=== PATIENT | male | born 1955 | race Caucasian/White ===

== ENCOUNTER 2022-08-18 11:09 | Day surgery (SDC) | payer MEDICARE, BC ==
[~2022-08-18] VITALS: Ht 180.3 cm; Wt 135.0 kg
[2022-08-18] VITALS (8 sets, daily range): BP systolic 120–171; BP diastolic 63–102
[2022-08-18] MEDS ORDERED: diphenhydrAMINE 25mg capsule PO PRN (11:40)
[2022-08-18] MEDS ORDERED: normal saline 1,000 ML IV SCH (11:40)
[2022-08-18 12:07] LABS: BASOPHILS # (AUTO) 0.1 X10'3 (0-0.2); BASOPHILS % (AUTO) 1.4 % (0-1); EOSINOPHILS # (AUTO) 0.3 X10'3 (0-0.9); EOSINOPHILS % (AUTO) 3.6 % (0-6); HEMATOCRIT 46.3 % (42.0-52.0); HEMOGLOBIN 15.6 g/dl (14.0-17.9); LYMPHOCYTES # (AUTO) 2.1 X10'3 (1.1-4.8); LYMPHOCYTES % (AUTO) 27.3 % (21-51); MEAN CORPUSCULAR HEMOGLOBIN 29.2 PG (27.0-31.0); MEAN CORPUSCULAR HGB CONC 33.8 g/dL (33.0-36.5); MEAN CORPUSCULAR VOLUME 86.3 FL (78-98); MEAN PLATELET VOLUME 8.5 FL (7.4-10.4); MONOCYTES # (AUTO) 0.9 X10'3 (0-0.9); MONOCYTES % (AUTO) 11.2 % (2-12); NEUTROPHILS # (AUTO) 4.4 X10'3 (1.8-7.7); NEUTROPHILS % (AUTO) 56.5 % (42-75); PLATELET COUNT 272 X10'3 (140-440); RED BLOOD COUNT 5.36 X10'6 (4.70-6.10); RED CELL DISTRIBUTION WIDTH 14.8 % (11.5-14.5); WHITE BLOOD COUNT 7.9 X10'3 (4.5-11.0)
[2022-08-18 12:19] LABS: ALBUMIN 4.3 G/DL (3.4-5.0); ANION GAP 9 (8-16); BLOOD UREA NITROGEN 41 MG/DL (7-18); BUN/CREATININE RATIO 28.1 (10.0-20.0); CHLORIDE 101 MMOL/L (99-107); CREATININE 1.46 MG/DL (0.60-1.10); GLUCOSE 104 MG/DL (70-104); MAGNESIUM 2.1 MG/DL (1.5-2.4); SODIUM 139 MMOL/L (135-145); TOTAL CARBON DIOXIDE 28.7 MMOL/L (24-32); eGFR 48 ML/MIN
[2022-08-18] MEDS ORDERED: CALC-212 PO (12:19)
[2022-08-18] MEDS ORDERED: POTA-197 PO (12:19)
[2022-08-18] MEDS ORDERED: CARV6.2530 PO (12:19)
[2022-08-18] MEDS ORDERED: CLOP-32 PO (12:19)
[2022-08-18] MEDS ORDERED: SPIR25TA5 PO (12:19)
[2022-08-18] MEDS ORDERED: FURO40TA4 PO (12:19)
[2022-08-18] MEDS ORDERED: MAGN400T39 PO (12:19)
[2022-08-18] MEDS ORDERED: RIVA20TA PO (12:19)
[2022-08-18] MEDS ORDERED: METF-1203 OGT (12:19)
[2022-08-18] MEDS ORDERED: ATOR-2 PO (12:19)
[2022-08-18] MEDS ORDERED: EMPA10TA PO (12:19)
[2022-08-18] MEDS ORDERED: OMEG1CAP45 PO (12:19)
[2022-08-18] MEDS ORDERED: INSU100V5 IJ (12:19)
[2022-08-18] MEDS ORDERED: FENO145T38 PO (12:19)
[2022-08-18] MEDS ORDERED: SEMA0.25 SQ (12:19)
[2022-08-18] MEDS ORDERED: ASCO500T19 PO (12:19)
[2022-08-18] MEDS ORDERED: GABA300C PO ×2 (12:19)
[2022-08-18] MEDS ORDERED: MULT-1249 PO (12:19)
[2022-08-18] MEDS ORDERED: fentaNYL/PF 50MCG/1 ML 2ML syringe ONE ×2 (12:20→14:49)
[2022-08-18] MEDS ORDERED: midazolam 1 mg/ML 2ml injection ONE ×3 (12:20→13:18)
[2022-08-18 12:21] LABS: POTASSIUM 4.6 MMOL/L (3.5-5.1)
[2022-08-18] MEDS ORDERED: iohexol 350MG/ML 100ml bottle IV ONE ×3 (12:21→14:13)
[2022-08-18] MEDS ORDERED: heparin 1,000unit/ml 10ml vial 10 ML ONE ×2 (12:21→14:15)
[2022-08-18] MEDS ORDERED: LIDOcaine 1% 30ml preserv. free vial ONE (12:21)
[2022-08-18] MEDS ORDERED: clopidogrel 300mg tablet ONE (13:47)
[2022-08-18] MEDS ORDERED: ondansetron/PF 4mg/2ml inj IV PRN (15:35)
[2022-08-18] MEDS ORDERED: proCHLORperazine 10 MG/2 ml inj IV PRN (15:40)
[2022-08-18] MEDS ORDERED: HYDROcodone/acetaminophen 5mg/325mg tablet PO PRN (15:40)
[2022-08-18] MEDS ORDERED: HYDROcodone/acetaminophen 10/325mg tab PO PRN (15:40)
== END 2022-08-18 19:40 | disposition home or self-care (01) ==
LOC: SSTAY O 11:09
PROVIDERS: ATTEND Internal Medicine Cardiovascular Disease
DX: I25.119 Atherosclerotic heart disease of native coronary artery with unspecified angina pectoris (principal); E78.5 Hyperlipidemia, unspecified; G47.33 Obstructive sleep apnea (adult) (pediatric); D68.51 Activated protein C resistance; E66.01 Morbid (severe) obesity due to excess calories; Z68.41 Body mass index [BMI] 40.0-44.9, adult; E11.9 Type 2 diabetes mellitus without complications; Z79.4 Long term (current) use of insulin; Z79.899 Other long term (current) drug therapy; Z90.49 Acquired absence of other specified parts of digestive tract; Z98.890 Other specified postprocedural states; Z88.2 Allergy status to sulfonamides; Z88.8 Allergy status to other drugs, medicaments and biological substances; Z87.891 Personal history of nicotine dependence; Z82.49 Family history of ischemic heart disease and other diseases of the circulatory system
CPT/HCPCS: 36415; 80048; 82948; 83735; 85025; 85610; 93005; 93458; 99152; 99153; C1725; C1751; C1760; C1769; C1874; C1892; C1894; C9600; J1644; J2250; J3010; J3490; J7030; Q0163; Q9967; 92928; A6258; C1761; C9601

== ENCOUNTER 2022-08-19 18:53 | Inpatient (IN) | payer OTHER, MEDICARE, BC ==
[~2022-08-19] VITALS: Ht 177.8 cm; Wt 136.0 kg
[~2022-08-19 18:53] MED LIST: ASCO500T19 PO; ATOR-2 PO; CALC-212 PO; CARV6.2530 PO; CLOP-32 PO; EMPA10TA PO; FENO145T38 PO; FURO40TA4 PO; GABA300C PO; INSU100V5 IJ; MAGN400T39 PO; METF-1203 OGT; MULT-1249 PO; OMEG1CAP45 PO; POTA-197 PO; RIVA20TA PO; SEMA0.25 SQ; SPIR25TA5 PO
[2022-08-19 19:17] LABS: BASOPHILS # (AUTO) 0.1 X10'3 (0-0.2); BASOPHILS % (AUTO) 0.9 % (0-1); EOSINOPHILS # (AUTO) 0.2 X10'3 (0-0.9); EOSINOPHILS % (AUTO) 2.3 % (0-6); HEMOGLOBIN 15.2 g/dl (14.0-17.9); LYMPHOCYTES # (AUTO) 1.8 X10'3 (1.1-4.8); LYMPHOCYTES % (AUTO) 18.8 % (21-51); MEAN CORPUSCULAR HEMOGLOBIN 29.3 PG (27.0-31.0); MEAN CORPUSCULAR HGB CONC 33.7 g/dL (33.0-36.5); MEAN CORPUSCULAR VOLUME 86.7 FL (78-98); MEAN PLATELET VOLUME 8.6 FL (7.4-10.4); MONOCYTES # (AUTO) 0.9 X10'3 (0-0.9); MONOCYTES % (AUTO) 9.5 % (2-12); NEUTROPHILS # (AUTO) 6.5 X10'3 (1.8-7.7); NEUTROPHILS % (AUTO) 68.5 % (42-75); PLATELET COUNT 246 X10'3 (140-440); RED BLOOD COUNT 5.19 X10'6 (4.70-6.10); WHITE BLOOD COUNT 9.5 X10'3 (4.5-11.0)
[2022-08-19 19:49] LABS: ALANINE AMINOTRANSFERASE 67 U/L (12-78); ALBUMIN 3.9 G/DL (3.4-5.0); ALBUMIN/GLOBULIN RATIO 1.1 (1.1-1.5); ALKALINE PHOSPHATASE 80 IU/L (46-116); ANION GAP 10 (8-16); ASPARTATE AMINO TRANSFERASE 33 U/L (10-37); BILIRUBIN,TOTAL 0.6 MG/DL (0.1-1.0); BLOOD UREA NITROGEN 32 MG/DL (7-18); BUN/CREATININE RATIO 22.5 (10.0-20.0); CHLORIDE 98 MMOL/L (99-107); CREATININE 1.42 MG/DL (0.60-1.10); GLUCOSE 346 MG/DL (70-104); POTASSIUM 4.6 MMOL/L (3.5-5.1); SODIUM 134 MMOL/L (135-145); TOTAL CARBON DIOXIDE 25.8 MMOL/L (24-32); TOTAL PROTEIN 7.4 G/DL (6.4-8.2); eGFR 49 ML/MIN
[2022-08-19 19:58] LABS: MAGNESIUM 2.2 MG/DL (1.5-2.4)
[2022-08-19] MEDS ORDERED: nitroGLYCERIN 0.4mg SUBLingual tab SL PRN (20:15)
[2022-08-19] MEDS ORDERED: nitroGLYCERIN 0.4mg/hour patch TD ONE (20:20)
[2022-08-19] MEDS ORDERED: aspirin 81mg tab.chew PO ONE (20:20)
[2022-08-19] MEDS ORDERED: heparin 10,000 units/1 ML INJ IV ONE (20:20)
[2022-08-19 20:34] LABS: APTT 27 SECONDS (22-32)
[2022-08-19] MEDS: heparin 25,000 UNIT/250ml bag 250 ML IV PRN (20:44)
[2022-08-19] MEDS ORDERED: ondansetron/PF 4mg/2ml inj IV PRN (21:25)
[2022-08-19] MEDS: normal saline 1000ml 1,000 ML IV SCH (21:25)
[2022-08-19] MEDS ORDERED: ondansetron 4mg rapidly disintigrating tab PO PRN (21:25)
[2022-08-19] MEDS ORDERED: HYDROcodone/acetaminophen 10/325mg tab PO PRN (21:25)
[2022-08-19] MEDS ORDERED: acetaminophen 650mg rectal suppository RC PRN (21:25)
[2022-08-19] MEDS ORDERED: acetaminophen 325mg tablet PO PRN ×2 (21:25)
[2022-08-19] MEDS ORDERED: bisacodyl 10mg suppository rectal RC PRN (21:25)
[2022-08-19] MEDS ORDERED: magnesium hydroxide 30ml (MOM) UD suspension PO PRN (21:25)
[2022-08-19] MEDS ORDERED: HYDROcodone/acetaminophen 5mg/325mg tablet PO PRN (21:25)
[2022-08-19] MEDS ORDERED: morphine 2 MG/ML inj. syringe IV PRN ×2 (21:25)
[2022-08-19] MEDS ORDERED: diphenhydrAMINE 50 mg/ml inj IV PRN (21:25)
[2022-08-19] MEDS ORDERED: diphenhydrAMINE 25mg capsule PO PRN (21:25)
[2022-08-19] MEDS ORDERED: mag hydrox/Alum hydrox/simeth 30ml oral suspension PO PRN (21:25)
[2022-08-19] MEDS ORDERED: glucagon, human recombinant 1mg kit SUBCUT PRN (21:30)
[2022-08-19] MEDS ORDERED: dextrose 50%-water 50ml dispensing syringe IV PRN ×2 (21:30)
[2022-08-19] MEDS ORDERED: MESSAGE TO PHARMACY PO ONE (21:30)
[2022-08-19] MEDS ORDERED: DEXTROSE 15 GM of carb/4 tabs (each vial/BOTTLE has 4 tablets) PO PRN ×2 (21:30)
[2022-08-19] MEDS: insulin glargine (Lantus) pen - multi-dose SQ SCH (22:13)
[2022-08-19 22:27] LABS: CLARITY,URINE CLEAR (Clear); COLOR,URINE STRAW (Yellow); GLUCOSE, URINE >=1000 mg/dl (Neg); KETONES,URINE NEGATIVE (Neg); LEUKOCYTE ESTERASE ,URINE NEGATIVE (Neg); NITRITES, URINE NEGATIVE (Neg); OCCULT BLOOD,URINE NEGATIVE (Neg); PROTEIN,URINE NEGATIVE (Neg); UROBILINOGEN,URINE 0.2 E.U/dL (0.2-1.0)
[2022-08-19 22:28] LABS: HEMOGLOBIN A1C 9.7 % (4.5-6.2)
[2022-08-19 22:28] LABS: UA COLLECTION TYPE CLN CATCH MIDSTREAM
[2022-08-19 22:45] LABS: CREATINE KINASE 240 U/L (39-308); LIPASE 627 U/L (73-393); PHOSPHORUS 3.7 MG/DL (2.3-4.5)
[2022-08-19 22:47] LABS: BACTERIA,URINE NONE SEEN /HPF (Neg); RBC,URINE NONE SEEN /HPF (0-2); SQUAMOUS EPITHELIAL CELL,UR FEW /LPF (FEW); WBC,URINE NONE SEEN /HPF (0-4)
[2022-08-20] VITALS (7 sets, daily range): BP systolic 96–131; BP diastolic 50–64
[2022-08-20 03:37] LABS: BASOPHILS # (AUTO) 0.1 X10'3 (0-0.2); BASOPHILS % (AUTO) 1.1 % (0-1); EOSINOPHILS # (AUTO) 0.2 X10'3 (0-0.9); EOSINOPHILS % (AUTO) 2.5 % (0-6); HEMATOCRIT 43.6 % (42.0-52.0); HEMOGLOBIN 14.7 g/dl (14.0-17.9); LYMPHOCYTES # (AUTO) 2.3 X10'3 (1.1-4.8); LYMPHOCYTES % (AUTO) 28.4 % (21-51); MEAN CORPUSCULAR HEMOGLOBIN 29.4 PG (27.0-31.0); MEAN CORPUSCULAR HGB CONC 33.8 g/dL (33.0-36.5); MEAN CORPUSCULAR VOLUME 87.2 FL (78-98); MEAN PLATELET VOLUME 8.9 FL (7.4-10.4); MONOCYTES # (AUTO) 0.8 X10'3 (0-0.9); MONOCYTES % (AUTO) 10.1 % (2-12); NEUTROPHILS # (AUTO) 4.8 X10'3 (1.8-7.7); NEUTROPHILS % (AUTO) 57.9 % (42-75); PLATELET COUNT 264 X10'3 (140-440); RED CELL DISTRIBUTION WIDTH 15.2 % (11.5-14.5); WHITE BLOOD COUNT 8.3 X10'3 (4.5-11.0)
[2022-08-20 03:49] LABS: ALANINE AMINOTRANSFERASE 57 U/L (12-78); ALBUMIN 3.8 G/DL (3.4-5.0); ALBUMIN/GLOBULIN RATIO 1.1 (1.1-1.5); ALKALINE PHOSPHATASE 64 IU/L (46-116); ANION GAP 9 (8-16); BILIRUBIN,TOTAL 0.5 MG/DL (0.1-1.0); BLOOD UREA NITROGEN 31 MG/DL (7-18); BUN/CREATININE RATIO 22.1 (10.0-20.0); CHLORIDE 100 MMOL/L (99-107); CHOL/HDL RATIO 4.4 (0.00-4.99); CHOLESTEROL 155 MG/DL (0-200); HDL CHOLESTEROL 35 MG/DL (35-60); LDL CHOLESTEROL 69 MG/DL (50-100); SODIUM 135 MMOL/L (135-145); TOTAL CARBON DIOXIDE 26.3 MMOL/L (24-32); TOTAL PROTEIN 7.3 G/DL (6.4-8.2); TRIGLYCERIDES 604 MG/DL (20-135); eGFR 50 ML/MIN
[2022-08-20 04:06] LABS: GLUCOSE 250 MG/DL (70-104); POTASSIUM 4.4 MMOL/L (3.5-5.1)
[2022-08-20 04:25] LABS: ASPARTATE AMINO TRANSFERASE 25 U/L (10-37)
[2022-08-20] MEDS: normal saline 1000ml 1,000 ML IV SCH ×3 (04:36→22:06)
--- NOTE | 2022-08-20 06:48 | NUR ---
Patient in room ORTHO 4016. I have received report from SYLWIA AMOS and had the opportunity to ask questions and assume patient care.
[2022-08-20] MEDS: calcium carbonate 500mg chew tablet PO PRN (08:59)
[2022-08-20] MEDS: atorvastatin 20mg tablet PO SCH (09:00)
[2022-08-20] MEDS: pantoprazole 40mg Tablet.DR PO SCH (09:00)
[2022-08-20] MEDS: gabapentin 300mg capsule PO SCH ×2 (09:00→19:45)
[2022-08-20] MEDS: fenofibrate 145mg tablet PO SCH (09:01)
[2022-08-20] MEDS: docusate sod 100mg capsule PO SCH ×2 (09:02→19:44)
[2022-08-20] MEDS: spironolactone 25 MG tablet PO SCH (09:04)
[2022-08-20] MEDS: carvedilol 6.25mg tablet PO SCH ×2 (09:05→19:44)
[2022-08-20] MEDS: insulin Lispro (HumaLOG) vial - multi-dose SQ SCH ×3 (09:22→19:37)
--- NOTE | 2022-08-20 10:22 | NUR ---
Page Sent PAGER ID: [phone] MESSAGE: [phone] RENEA PT IS IN 3RD DEGREE HEART PER CERTIFIED RETINAL ANGIOGRAPHER. MIN
--- NOTE | 2022-08-20 10:32 | NUR ---
PER DR YBARRA, HE TALKED TO DR KIM AND I ALSO JUST CALLED HIM, STATED PT DID HAVE A HEADACHE AND WAS FEELING NOT GREAT, TOLD HIM HIS VITALS WERE BP 119/54 AND HR 62. HE STATED TO JUST CONTINUE TO MONITOR AND HE WILL BE UP TO SEE HIM SOON.
--- NOTE | 2022-08-20 11:25 | NUR ---
TALKED TO NURSING SUP SHE WAS ALREADY AWARE OF THIS PT BEING IN A HEART BLOCK, PT ENDED UP DROPPING IN HR TO 30 THEN TO 68 AGAIN AND I INFORMED SUP AND CHARGE THAT HE NEEDS TO GO TO TELE, THEY AGREED ONCE DC WERE GONE HE WILL BE MOVED. I JUST ALSO TALKED TO DR KIM INFORMED HER OF THIS AGAIN AND SHE STATED THAT DR YBARRA WAS GOING TO COME SEE THE PT AND THAT I DID NOT NEED TO INFORM HIM AGAIN BECAUSE HE WASN'T TOO WORRIED. I DID TELL HER THAT THE PT WILL BE MOVED TO TELE WHICH SHE AGREED WITH AND SHE WOULD BE IN CONTACT WITH DR YBARRA.
--- NOTE | 2022-08-20 11:36 | NUR ---
Page Sent PAGER ID: [phone] MESSAGE: [phone] RENEA, PLEASE CALL ME ABOUT THIS PT WHEN YOU CAN, THANKS MIN
--- NOTE | 2022-08-20 11:47 | NUR ---
DM Consult: Pt hx T2DM A1C 9.7% takes weekly Ozempic and daily Jardiance as well as metformin per EMR. Noted TG 604mg/dl per EMR. Pt/SO seen by KASSIE at bedside; pt sleeping during RD visit SO reports first time able to sleep recently. RD provided written eds w/ brief verbal review to SO; would benefit from verbal reinforcement prior to discharge. Per SO, pt routinely follows up at ID for DM/diet management records Glu daily to report to them. Noted pt not on carb controlled diet only heart healthy; KASSIE d/w RN regarding addition of carb controlled diet if MD agreeable. Addendum: 08/20/22 at [address] Amended: Links added.
--- NOTE | 2022-08-20 11:49 | NUR ---
Page Sent PAGER ID: [phone] MESSAGE: [phone] RENEA, PLEASE CALL ME ITS ABOUT THE PTS HEPARIN DRIP THERE IS NO BOLUS ORDERED AND PER PROTOCOL HE NEEDS ONE, NOT SURE IF YOU WOULD LIKE THE BOLUS??? . SO PLEASE LET ME KNOW.
--- NOTE | 2022-08-20 11:59 | NUR ---
ATTEMPTED TO CONTACT DR KIM COUPLE OF TIMES HAVE NOT HEARD ANYTHING BACK, NEED TO CHANGE PTS HEPARIN DRIP RATE CAN NOT WAIT FOR DR TO AUTHORIZE THE BOLUS. CHARGE NURSE WAS NOTIFIED.
--- NOTE | 2022-08-20 12:14 | NUR ---
PTT RESULTED ABOUT 11 AM, STILL DID NOT HEAR FROM DR KIM ABOUT BOLUS, I CHANGED DRIP WITH CHARGE NURSE.
--- NOTE | 2022-08-20 12:38 | NUR ---
TALKED TO DR CRUZ, SHE STATED I CAN DO THE BOLUS NEXT PTT IF IT NEEDS TO BE DONE. ALSO SHE WANTED THE XARELTO AND PLAVIX STOPPED BECAUSE THE PT IS ON A HEPARIN DRIP.
--- NOTE | 2022-08-20 13:37 | NUR ---
Page Sent PAGER ID: [phone] MESSAGE: [phone] A COOK, PT IS ON A HEART HEALTHY DIET, IT HAS TOO MANY CARBS, I AM GOING TO PUT HIM ON A CARB CONTROL DIET/HH.
[2022-08-20] MEDS: heparin 25,000 UNIT/250ml bag 250 ML IV PRN (14:10)
--- NOTE | 2022-08-20 15:33 | NUR ---
Page Sent PAGER ID: [phone] MESSAGE: [phone] NATE MEIER WANTS TO KNOW IF HE CAN USE HIS HOME INSULIN THEY SAID IT IS CALLED RU 500 INSULIN, HE SATES IT WORKS BETTER THEN OUR INSULIN. PLEASE LET ME KNOW MIN
[2022-08-20] MEDS ORDERED: rivaroxaban 20mg tablet PO SCH (17:00)
--- NOTE | 2022-08-20 18:39 | NUR ---
Problems reprioritized. Patient report given, questions answered & plan of care reviewed with BOWEN AMOS.
[2022-08-20] MEDS: heparin 10,000 units/1 ML INJ IV PRN (19:39)
[2022-08-20] MEDS: temazepam 15mg capsule PO PRN (19:45)
[2022-08-20] MEDS ORDERED: clopidogrel 75mg tablet PO SCH (21:00)
[2022-08-20] MEDS: insulin glargine (Lantus) pen - multi-dose SQ SCH (22:17)
[2022-08-21] VITALS (9 sets, daily range): BP systolic 123–156; BP diastolic 54–81
[2022-08-21 02:21] LABS: BASOPHILS # (AUTO) 0.1 X10'3 (0-0.2); EOSINOPHILS # (AUTO) 0.3 X10'3 (0-0.9); EOSINOPHILS % (AUTO) 3.1 % (0-6); HEMATOCRIT 40.2 % (42.0-52.0); HEMOGLOBIN 13.6 g/dl (14.0-17.9); LYMPHOCYTES # (AUTO) 2.5 X10'3 (1.1-4.8); LYMPHOCYTES % (AUTO) 27.2 % (21-51); MEAN CORPUSCULAR HEMOGLOBIN 29.1 PG (27.0-31.0); MEAN CORPUSCULAR HGB CONC 33.7 g/dL (33.0-36.5); MEAN CORPUSCULAR VOLUME 86.3 FL (78-98); MEAN PLATELET VOLUME 8.5 FL (7.4-10.4); MONOCYTES # (AUTO) 0.9 X10'3 (0-0.9); MONOCYTES % (AUTO) 10.1 % (2-12); NEUTROPHILS # (AUTO) 5.4 X10'3 (1.8-7.7); NEUTROPHILS % (AUTO) 58.6 % (42-75); PLATELET COUNT 227 X10'3 (140-440); RED BLOOD COUNT 4.66 X10'6 (4.70-6.10); RED CELL DISTRIBUTION WIDTH 14.9 % (11.5-14.5); WHITE BLOOD COUNT 9.2 X10'3 (4.5-11.0)
[2022-08-21 02:32] LABS: ALANINE AMINOTRANSFERASE 43 U/L (12-78); ALBUMIN 3.3 G/DL (3.4-5.0); ALKALINE PHOSPHATASE 35 IU/L (46-116); ANION GAP 6 (8-16); ASPARTATE AMINO TRANSFERASE 21 U/L (10-37); BILIRUBIN,TOTAL 0.6 MG/DL (0.1-1.0); BLOOD UREA NITROGEN 25 MG/DL (7-18); BUN/CREATININE RATIO 19.7 (10.0-20.0); CALCIUM 8.5 MG/DL (8.5-10.1); CHLORIDE 103 MMOL/L (99-107); CREATININE 1.27 MG/DL (0.60-1.10); GLUCOSE 198 MG/DL (70-104); SODIUM 135 MMOL/L (135-145); TOTAL CARBON DIOXIDE 25.8 MMOL/L (24-32); TOTAL PROTEIN 6.7 G/DL (6.4-8.2); eGFR 56 ML/MIN
[2022-08-21] MEDS: heparin 25,000 UNIT/250ml bag 250 ML IV PRN ×3 (04:05→15:30)
[2022-08-21] MEDS: gabapentin 300mg capsule PO SCH ×2 (08:26→19:14)
[2022-08-21] MEDS: docusate sod 100mg capsule PO SCH ×2 (08:27→19:14)
[2022-08-21] MEDS: spironolactone 25 MG tablet PO SCH (08:27)
[2022-08-21] MEDS: atorvastatin 20mg tablet PO SCH (08:27)
[2022-08-21] MEDS: carvedilol 6.25mg tablet PO SCH ×2 (08:27→19:14)
[2022-08-21] MEDS: pantoprazole 40mg Tablet.DR PO SCH (08:28)
[2022-08-21] MEDS: fenofibrate 145mg tablet PO SCH (08:28)
[2022-08-21] MEDS ORDERED: fentaNYL/PF 50MCG/1 ML 2ML syringe ONE ×3 (08:41→11:38)
[2022-08-21] MEDS ORDERED: heparin 1,000unit/ml 10ml vial 10 ML ONE (08:41)
[2022-08-21] MEDS ORDERED: midazolam 1 mg/ML 2ml injection ONE ×6 (08:41→11:03)
[2022-08-21] MEDS ORDERED: iohexol 350MG/ML 100ml bottle IV ONE ×2 (08:41→09:38)
[2022-08-21] MEDS ORDERED: LIDOcaine 1% 30ml preserv. free vial ONE (08:41)
[2022-08-21] MEDS: normal saline 1000ml 1,000 ML IV SCH (08:51)
--- NOTE | 2022-08-21 09:18 | NUR ---
Patient taken to laboratory technologist at 0900.
[2022-08-21] MEDS ORDERED: proCHLORperazine 10 MG/2 ml inj ONE (09:38)
[2022-08-21] MEDS ORDERED: HYDROmorphone 1 mg/ml syringe ONE (09:40)
--- NOTE | 2022-08-21 10:17 | NUR ---
Cardiac ptt 42. Patient currently in lab coordinator at time results came back.
[2022-08-21] MEDS ORDERED: atropine 0.1mg/ml 10ml syringe ONE (10:47)
--- NOTE | 2022-08-21 11:00 | NUR ---
Patient at mobile lab technician for 1100 VS.
[2022-08-21] MEDS ORDERED: iohexol 350 MG/ML 50ML vial IV ONE ×2 (11:19→11:48)
[2022-08-21] MEDS ORDERED: clopidogrel 300mg tablet ONE (11:22)
[2022-08-21] MEDS ORDERED: tPA-cathflo 2 MG/2 ml IV flush ONE (11:25)
[2022-08-21] MEDS ORDERED: heparin 1,000 UNITS/NS 500ml 500 ML ONE (11:40)
--- NOTE | 2022-08-21 12:30 | NUR ---
Patient returned from manager cardiac cath. Patient is stable. BLL. Visitors at bedside. New orders from manager cardiac cath sent to pharmacy. VSS. No hematoma noted at groin site for stent.
[2022-08-21] MEDS: calcium carbonate 500mg chew tablet PO PRN (12:40)
[2022-08-21] MEDS: insulin Lispro (HumaLOG) vial - multi-dose SQ SCH ×2 (14:14→18:59)
--- NOTE | 2022-08-21 15:28 | NUR ---
patient came back from recyclable products sorter. pulses and groin site dry and intact. positive pulses 15 min checks from 1230pm to 1330pm.. 30 min checks 1400 til 1530pm
[2022-08-21] MEDS: temazepam 15mg capsule PO PRN (19:14)
[2022-08-21] MEDS: insulin glargine (Lantus) pen - multi-dose SQ SCH (21:17)
[2022-08-22] MEDS: normal saline 1000ml 1,000 ML IV SCH (02:04)
[2022-08-22 03:52] LABS: BASOPHILS # (AUTO) 0.1 X10'3 (0-0.2); BASOPHILS % (AUTO) 0.7 % (0-1); EOSINOPHILS # (AUTO) 0.1 X10'3 (0-0.9); EOSINOPHILS % (AUTO) 1.2 % (0-6); HEMATOCRIT 41.2 % (42.0-52.0); HEMOGLOBIN 13.6 g/dl (14.0-17.9); LYMPHOCYTES # (AUTO) 1.3 X10'3 (1.1-4.8); LYMPHOCYTES % (AUTO) 11.5 % (21-51); MEAN CORPUSCULAR HEMOGLOBIN 28.6 PG (27.0-31.0); MEAN CORPUSCULAR VOLUME 86.7 FL (78-98); MEAN PLATELET VOLUME 8.6 FL (7.4-10.4); MONOCYTES # (AUTO) 1.2 X10'3 (0-0.9); MONOCYTES % (AUTO) 10.9 % (2-12); NEUTROPHILS # (AUTO) 8.6 X10'3 (1.8-7.7); NEUTROPHILS % (AUTO) 75.7 % (42-75); PLATELET COUNT 233 X10'3 (140-440); RED BLOOD COUNT 4.75 X10'6 (4.70-6.10); RED CELL DISTRIBUTION WIDTH 15.1 % (11.5-14.5); WHITE BLOOD COUNT 11.3 X10'3 (4.5-11.0)
[2022-08-22 04:06] LABS: ALANINE AMINOTRANSFERASE 49 U/L (12-78); ALBUMIN 3.3 G/DL (3.4-5.0); ALBUMIN/GLOBULIN RATIO 0.9 (1.1-1.5); ALKALINE PHOSPHATASE 33 IU/L (46-116); ANION GAP 12 (8-16); ASPARTATE AMINO TRANSFERASE 94 U/L (10-37); BILIRUBIN,TOTAL 0.7 MG/DL (0.1-1.0); BLOOD UREA NITROGEN 20 MG/DL (7-18); BUN/CREATININE RATIO 18.2 (10.0-20.0); CALCIUM 8.8 MG/DL (8.5-10.1); CHLORIDE 103 MMOL/L (99-107); GLUCOSE 178 MG/DL (70-104); POTASSIUM 4.2 MMOL/L (3.5-5.1); SODIUM 136 MMOL/L (135-145); TOTAL CARBON DIOXIDE 20.8 MMOL/L (24-32); TOTAL PROTEIN 6.9 G/DL (6.4-8.2); eGFR 66 ML/MIN
[2022-08-22] MEDS: heparin 25,000 UNIT/250ml bag 250 ML IV PRN (04:25)
[2022-08-22] MEDS: heparin 10,000 units/1 ML INJ IV PRN (04:26)
[2022-08-22 06:00] VITALS: BP 135/66
[2022-08-22] MEDS: gabapentin 300mg capsule PO SCH (07:54)
[2022-08-22] MEDS: fenofibrate 145mg tablet PO SCH (07:54)
[2022-08-22] MEDS: docusate sod 100mg capsule PO SCH (07:54)
[2022-08-22] MEDS: carvedilol 6.25mg tablet PO SCH (07:55)
[2022-08-22] MEDS: atorvastatin 20mg tablet PO SCH (07:55)
[2022-08-22] MEDS: pantoprazole 40mg Tablet.DR PO SCH (07:55)
[2022-08-22 07:57] VITALS: BP_SYST 135
[2022-08-22] MEDS: spironolactone 25 MG tablet PO SCH (07:57)
[2022-08-22] MEDS: insulin Lispro (HumaLOG) vial - multi-dose SQ SCH (08:59)
[2022-08-22] MEDS ORDERED: ASPI81TA52 PO (10:06)
--- NOTE | 2022-08-22 11:59 | NUR ---
F/u 08/22: Pt seen by KASSIE at bedside for verbal DM/HH diet ed follow-up. Pt declines education at this time reports no nutrition questions/concerns. KASSIE encouraged pt to contact dietitian's office if nutrition questions/concerns. Addendum: 08/22/22 at [address] Amended: Links added.
== END 2022-08-22 12:16 | disposition home or self-care (01) | DRG 246 ==
LOC: ER 18:54 → ED HOLD 21:28 → ORTHO 4S 08-20 03:35
PROVIDERS: ADMIT Family Medicine; ATTEND Internal Medicine
PROC: 5A09357 Assistance with Respiratory Ventilation, Less than 24 Consecutive Hours, Continuous Positive Airway Pressure (ICD-10-PCS; 2022-08-20)
PROC: 027035Z Dilation of Coronary Artery, One Artery with Two Drug-eluting Intraluminal Devices, Percutaneous Approach (ICD-10-PCS; principal; 2022-08-21)
PROC: B2111ZZ Fluoroscopy of Multiple Coronary Arteries using Low Osmolar Contrast (ICD-10-PCS; 2022-08-21)
PROC: 5A09357 Assistance with Respiratory Ventilation, Less than 24 Consecutive Hours, Continuous Positive Airway Pressure (ICD-10-PCS; 2022-08-21)
PROC: 02F03ZZ Fragmentation in Coronary Artery, One Artery, Percutaneous Approach (ICD-10-PCS; 2022-08-21)
PROC: 4A023N7 Measurement of Cardiac Sampling and Pressure, Left Heart, Percutaneous Approach (ICD-10-PCS; 2022-08-21)
DX: I21.4 Non-ST elevation (NSTEMI) myocardial infarction (principal); K85.90 Acute pancreatitis without necrosis or infection, unspecified; E87.1 Hypo-osmolality and hyponatremia; I50.32 Chronic diastolic (congestive) heart failure; Z68.41 Body mass index [BMI] 40.0-44.9, adult; I13.0 Hypertensive heart and chronic kidney disease with heart failure and stage 1 through stage 4 chronic kidney disease, or unspecified chronic kidney disease; E78.00 Pure hypercholesterolemia, unspecified; I25.10 Atherosclerotic heart disease of native coronary artery without angina pectoris; E66.01 Morbid (severe) obesity due to excess calories; G47.33 Obstructive sleep apnea (adult) (pediatric); E78.1 Pure hyperglyceridemia; E11.65 Type 2 diabetes mellitus with hyperglycemia; N18.30 Chronic kidney disease, stage 3 unspecified; E11.22 Type 2 diabetes mellitus with diabetic chronic kidney disease; Z95.5 Presence of coronary angioplasty implant and graft; I25.2 Old myocardial infarction; Z88.2 Allergy status to sulfonamides; Z79.899 Other long term (current) drug therapy; Z87.891 Personal history of nicotine dependence; Z79.4 Long term (current) use of insulin; Z79.82 Long term (current) use of aspirin
CPT/HCPCS: 92920; 92975; 99285; C9600; C9601; 36415; 71045; 80053; 80061; 81001; 82550; 82948; 83036; 83690; 83735; 83880; 84100; 84443; 84484; 85025; 85379; 85610; 85730; 87081; 93005; 99152; 99153; A4620; A4663; A6258; C1725; C1751; C1760; C1761; C1769; C1874; C1892; C1894; G0378; J0461; J0780; J1170; J1644; J1815; J2250; J2270; J2997; J3010; J3490; J7030; Q9967

== ENCOUNTER 2022-11-19 19:42 | Emergency (ER) | payer OTHER, MEDICARE, BC ==
[~2022-11-19] VITALS: Ht 180.3 cm; Wt 136.6 kg
[~2022-11-19 19:42] MED LIST changes: -SEMA0.25 SQ
[2022-11-19 20:00] VITALS: BP 161/81
[2022-11-19 20:02] LABS: BASOPHILS # (AUTO) 0.1 X10'3 (0-0.2); BASOPHILS % (AUTO) 1.4 % (0-1); EOSINOPHILS # (AUTO) 0.3 X10'3 (0-0.9); EOSINOPHILS % (AUTO) 3.6 % (0-6); HEMATOCRIT 44.3 % (42.0-52.0); HEMOGLOBIN 15.1 g/dl (14.0-17.9); LYMPHOCYTES % (AUTO) 29.5 % (21-51); MEAN CORPUSCULAR HEMOGLOBIN 29.1 PG (27.0-31.0); MEAN CORPUSCULAR VOLUME 85.7 FL (78-98); MEAN PLATELET VOLUME 8.6 FL (7.4-10.4); MONOCYTES # (AUTO) 0.8 X10'3 (0-0.9); MONOCYTES % (AUTO) 11.3 % (2-12); NEUTROPHILS # (AUTO) 3.8 X10'3 (1.8-7.7); NEUTROPHILS % (AUTO) 54.2 % (42-75); PLATELET COUNT 246 X10'3 (140-440); RED BLOOD COUNT 5.17 X10'6 (4.70-6.10); RED CELL DISTRIBUTION WIDTH 15.2 % (11.5-14.5); WHITE BLOOD COUNT 6.9 X10'3 (4.5-11.0)
[2022-11-19 20:22] LABS: ALBUMIN 3.7 G/DL (3.4-5.0); ALBUMIN/GLOBULIN RATIO 1.1 (1.1-1.5); ALKALINE PHOSPHATASE 121 IU/L (46-116); BILIRUBIN,TOTAL 0.5 MG/DL (0.1-1.0); BLOOD UREA NITROGEN 28 MG/DL (7-18); BUN/CREATININE RATIO 17.4 (10.0-20.0); CALCIUM 8.6 MG/DL (8.5-10.1); CREATININE 1.61 MG/DL (0.60-1.10); SODIUM 138 MMOL/L (135-145); TOTAL CARBON DIOXIDE 26.3 MMOL/L (24-32); TOTAL PROTEIN 7.2 G/DL (6.4-8.2); eGFR 43 ML/MIN
[2022-11-19 20:45] LABS: ALANINE AMINOTRANSFERASE 89 U/L (12-78); ANION GAP 12 (8-16); ASPARTATE AMINO TRANSFERASE 52 U/L (10-37); CHLORIDE 100 MMOL/L (99-107); GLUCOSE 317 MG/DL (70-104)
[2022-11-19 20:47] LABS: POTASSIUM 4.5 MMOL/L (3.5-5.1)
[2022-11-19] MEDS ORDERED: insulin regular, human 10 units/0.1 ml syringe SQ ONE (21:05)
== END 2022-11-19 21:33 | disposition home or self-care (01) ==
LOC: ER 19:43
DX: G51.0 Bell's palsy (principal); E11.65 Type 2 diabetes mellitus with hyperglycemia; I10 Essential (primary) hypertension; E78.00 Pure hypercholesterolemia, unspecified; Z88.2 Allergy status to sulfonamides
CPT/HCPCS: 36415; 70450; 71045; 80053; 82948; 83880; 84484; 85025; 93005; 96372; 99285; J1815

== ENCOUNTER 2024-03-07 06:48 | Day surgery (SDC) | payer MEDICARE, BC ==
[~2024-03-07] VITALS: Ht 180.3 cm; Wt 145.2 kg
[2024-03-07] VITALS (13 sets, daily range): BP systolic 112–185; BP diastolic 64–87; PULSE 60–70; RESP 13–25; TEMP 97.8; O2SAT 93–98
[2024-03-07 07:53] LABS: BASOPHILS # (AUTO) 0.1 X10'3 (0-0.2); BASOPHILS % (AUTO) 1.2 % (0-1); EOSINOPHILS # (AUTO) 0.2 X10'3 (0-0.9); EOSINOPHILS % (AUTO) 2.1 % (0-6); HEMATOCRIT 47.5 % (42.0-52.0); HEMOGLOBIN 15.7 g/dl (14.0-17.9); LYMPHOCYTES % (AUTO) 23.3 % (21-51); MEAN CORPUSCULAR HEMOGLOBIN 28.5 PG (27.0-31.0); MEAN CORPUSCULAR HGB CONC 33.2 g/dL (33.0-36.5); MEAN CORPUSCULAR VOLUME 85.9 FL (78-98); MEAN PLATELET VOLUME 8.5 FL (7.4-10.4); MONOCYTES # (AUTO) 0.9 X10'3 (0-0.9); MONOCYTES % (AUTO) 10.6 % (2-12); NEUTROPHILS # (AUTO) 5.4 X10'3 (1.8-7.7); NEUTROPHILS % (AUTO) 62.8 % (42-75); PLATELET COUNT 242 X10'3 (140-440); RED BLOOD COUNT 5.53 X10'6 (4.70-6.10); RED CELL DISTRIBUTION WIDTH 15.8 % (11.5-14.5); WHITE BLOOD COUNT 8.6 X10'3 (4.5-11.0)
[2024-03-07 08:25] LABS: ALBUMIN 3.6 G/DL (3.4-5.0); ANION GAP 9 (8-16); BLOOD UREA NITROGEN 31 MG/DL (7-18); BUN/CREATININE RATIO 23.5 (10.0-20.0); CALCIUM 9.1 MG/DL (8.5-10.1); CHLORIDE 103 MMOL/L (99-107); CREATININE 1.32 MG/DL (0.60-1.10); GLUCOSE 164 MG/DL (70-104); MAGNESIUM 2.1 MG/DL (1.5-2.4); POTASSIUM 4.2 MMOL/L (3.5-5.1); SODIUM 138 MMOL/L (135-145); TOTAL CARBON DIOXIDE 25.8 MMOL/L (24-32); eCRCL 55 ML/MIN; eGFR 54 ML/MIN
[2024-03-07 08:33] LABS: INR 1.3 INR; PROTHROMBIN TIME 13.7 SECONDS (9.0-12.0)
[2024-03-07] MEDS: normal saline 1000ml 1,000 ML IV SCH (09:29)
[2024-03-07] MEDS: MIDAZolam 1mg/ml 10ml vial IV ONE (09:29)
[2024-03-07] MEDS: fentaNYL/PF 50MCG/1 ML 2ML syringe IV ONE (09:30)
[2024-03-07] MEDS ORDERED: AMIO200T27 PO (10:50)
[2024-03-07] MEDS ORDERED: MECO10005 PO (10:50)
[2024-03-07] MEDS ORDERED: CYCL-394 PO (10:50)
[2024-03-07] MEDS ORDERED: PANT40TA54 PO (10:50)
[2024-03-07] MEDS ORDERED: BUPR-114 PO (10:50)
[2024-03-07] MEDS ORDERED: FURO20TA4 PO (10:50)
[2024-03-07] MEDS ORDERED: METF-900 PO (10:50)
[2024-03-07] MEDS ORDERED: INSULIN SQ (10:50)
[2024-03-07] MEDS ORDERED: ALB0.5UD NEB (10:50)
== END 2024-03-07 11:15 | disposition home or self-care (01) ==
LOC: SSTAY O 06:48
PROVIDERS: ATTEND Internal Medicine Cardiovascular Disease
DX: I48.91 Unspecified atrial fibrillation (principal); R94.31 Abnormal electrocardiogram [ECG] [EKG]; I11.9 Hypertensive heart disease without heart failure; I25.119 Atherosclerotic heart disease of native coronary artery with unspecified angina pectoris; E11.9 Type 2 diabetes mellitus without complications; E66.9 Obesity, unspecified; E78.5 Hyperlipidemia, unspecified; G47.33 Obstructive sleep apnea (adult) (pediatric); Z87.891 Personal history of nicotine dependence; Z86.718 Personal history of other venous thrombosis and embolism; Z79.01 Long term (current) use of anticoagulants; Z79.02 Long term (current) use of antithrombotics/antiplatelets; Z79.84 Long term (current) use of oral hypoglycemic drugs; Z79.899 Other long term (current) drug therapy; Z90.49 Acquired absence of other specified parts of digestive tract; Z95.5 Presence of coronary angioplasty implant and graft; Z98.890 Other specified postprocedural states; Z68.41 Body mass index [BMI] 40.0-44.9, adult; Z88.2 Allergy status to sulfonamides; Z88.8 Allergy status to other drugs, medicaments and biological substances; Z82.49 Family history of ischemic heart disease and other diseases of the circulatory system
CPT/HCPCS: 36415; 80048; 83735; 85025; 85610; 92960; 93005; J2250; J3010; J7030

== ENCOUNTER 2024-07-21 05:36 | Day surgery (SDC) | payer MEDICARE, BC ==
[~2024-07-21] VITALS: Ht 180.3 cm; Wt 140.6 kg
[2024-07-21] VITALS (9 sets, daily range): BP systolic 129–158; BP diastolic 68–90; PULSE 60–69; RESP 12–23; TEMP 97.8; O2SAT 93–97
[~2024-07-21 05:36] MED LIST changes: +ALBU8HFA INH; +BUPR-114 PO; -CALC-212 PO; +CEFAZOLIN 3GM/DEXTROSE 150mL 150 ML IV ONE; +CHOL20002 PO; +CYCL-394 PO; +DOCUMENT DATE & TIME OF BETA-BLOCKER PO ONE; -EMPA10TA PO; +EMPA25TA PO; +FURO20TA4 PO; -FURO40TA4 PO; -INSU100V5 IJ; +INSULIN SQ; +LANO454C3 TOP; +LIDO700A47 TOP; -METF-1203 OGT; +METF-1203 PO; +METF-900 PO; +PANT40TA54 PO; -SPIR25TA5 PO
[2024-07-21] MEDS: ringers solution, lacted 1,000 ML IV SCH (06:00)
[2024-07-21] MEDS: famotidine 20mg tablet PO ONE (06:00)
[2024-07-21] MEDS ORDERED: LIDOcaine 2% (20mg/ml) 5ml vial ONE ×2 (06:50→07:50)
[2024-07-21] MEDS ORDERED: BUPIVAcaine/PF 2.5mg/ml (0.25%) 10ml vial ONE (06:50)
[2024-07-21] MEDS ORDERED: ondansetron/PF 4mg/2ml inj IV PRN (07:45)
[2024-07-21] MEDS ORDERED: morphine 2 MG/ML inj. syringe IV PRN (07:45)
[2024-07-21] MEDS ORDERED: morphine 4 MG/ML inj SYRINge IV PRN (07:45)
[2024-07-21] MEDS ORDERED: meperidine/PF 25mg/ml syringe IV PRN ×2 (07:45)
[2024-07-21] MEDS ORDERED: enalaprilat 1.25mg/ml 2ml vial IV PRN (07:45)
[2024-07-21] MEDS ORDERED: ringers solution, lacted 1,000 ML IV SCH (07:45)
[2024-07-21] MEDS ORDERED: labetalol 20mg/4ml (5mg/ml) syringe IV PRN (07:45)
[2024-07-21] MEDS ORDERED: fentaNYL/PF 50MCG/1 ML 2ML syringe ONE (07:49)
[2024-07-21] MEDS ORDERED: midazolam 1 mg/ML 2ml injection ONE (07:49)
[2024-07-21] MEDS ORDERED: LIDOcaine 0.5% (5mg/ml) 50ml vial ONE (07:50)
[2024-07-21] MEDS ORDERED: ketorolac trometh 30MG/ML vial 30 MG/ML VIAL ONE (07:50)
[2024-07-21] MEDS: LIDOcaine 2% 10ml vial OGT ONE (08:33)
== END 2024-07-21 10:05 | disposition home or self-care (01) ==
LOC: PAS 05:36
PROVIDERS: ATTEND Orthopaedic Surgery Hand Surgery
DX: M18.12 Unilateral primary osteoarthritis of first carpometacarpal joint, left hand (principal); I25.10 Atherosclerotic heart disease of native coronary artery without angina pectoris; E11.22 Type 2 diabetes mellitus with diabetic chronic kidney disease; G47.30 Sleep apnea, unspecified; E78.00 Pure hypercholesterolemia, unspecified; K21.9 Gastro-esophageal reflux disease without esophagitis; I48.91 Unspecified atrial fibrillation; I25.2 Old myocardial infarction; E11.42 Type 2 diabetes mellitus with diabetic polyneuropathy; Z79.899 Other long term (current) drug therapy; Z88.2 Allergy status to sulfonamides; Z90.49 Acquired absence of other specified parts of digestive tract; Z98.890 Other specified postprocedural states; Z88.8 Allergy status to other drugs, medicaments and biological substances; Z72.89 Other problems related to lifestyle; Z95.5 Presence of coronary angioplasty implant and graft; N18.9 Chronic kidney disease, unspecified
CPT/HCPCS: 25312; 25447; 82948; A4215; A4618; A6449; A7000; J1885; J2003; J2250; J3010; J3490; J7030; J7120; Z7506; Z7512; Z7610

== ENCOUNTER 2025-01-02 08:21 | Day surgery (SDC) | payer OTHER, MEDICARE, BC ==
[~2025-01-02] VITALS: Ht 177.8 cm; Wt 133.5 kg
[2025-01-02] VITALS (10 sets, daily range): BP systolic 135–174; BP diastolic 57–82; PULSE 60–61; RESP 12–16; TEMP 97.4; O2SAT 95–98
[~2025-01-02 08:21] MED LIST changes: -CARV6.2530 PO; -CEFAZOLIN 3GM/DEXTROSE 150mL 150 ML IV ONE; -DOCUMENT DATE & TIME OF BETA-BLOCKER PO ONE; +[UNRECOGNIZED DRUG - CODE] PO
[2025-01-02] MEDS ORDERED: sodium bicarbonate 1meq/ml syr 150 ML in dextrose 5%-water 1,000 ML IV ONE (08:55)
[2025-01-02] MEDS ORDERED: FURO40TA4 PO (09:08)
--- NOTE | 2025-01-02 09:11 | ELECTROCARDIOGRAPH REPORT ---
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 SKYLER Moyer Measurements Intervals [place] Rate: 60 P: 0 NE: 474 QRS: 269 QRSD: 180 T: 111 QT: 499 QTc: 499 Interpretive Statements Right and left arm electrode reversal, interpretation assumes no reversal A-V dual-paced complexes w/ some inhibition No further analysis attempted due to paced rhythm Electronically Signed On 01-03-2025 15:38:[address] SKYLER Moyer Please click the below link to view image of tracing.
[2025-01-02] MEDS ORDERED: CARB10DR RIGHTEYE (09:19)
[2025-01-02] MEDS ORDERED: CARB10DR LEFTEYE (09:19)
[2025-01-02 09:21] LABS: MEAN PLATELET VOLUME 8.7 FL (7.4-10.4); RED CELL DISTRIBUTION WIDTH 16.4 % (11.5-14.5)
[2025-01-02] MEDS ORDERED: CALC-393 PO (09:21)
[2025-01-02 09:24] LABS: CREATININE 1.16 MG/DL (0.60-1.10); TOTAL CARBON DIOXIDE 26.5 MMOL/L (24-32); eCRCL 60 ML/MIN; eGFR 62 ML/MIN
[2025-01-02 09:26] LABS: INR 1.1 INR
[2025-01-02] MEDS ORDERED: fentaNYL/PF 50MCG/1 ML 2ML syringe ONE ×2 (10:33→12:18)
[2025-01-02] MEDS ORDERED: LIDOcaine 1% 30ml preserv. free vial ONE (10:33)
[2025-01-02] MEDS ORDERED: iohexol 350 MG/ML 50ML vial IV ONE (10:33)
[2025-01-02] MEDS ORDERED: midazolam 1 mg/ML 2ml injection ONE ×3 (10:33→12:22)
[2025-01-02] MEDS ORDERED: heparin 1,000unit/ml 10ml vial 10 ML ONE (10:34)
[2025-01-02] MEDS ORDERED: protamine sulfate 10mg/ml inj. ONE (12:38)
[2025-01-02] MEDS ORDERED: clopidogrel 300mg tablet ONE ×2 (12:40→13:07)
[2025-01-02] MEDS ORDERED: LIDOCAINE 2%/EPI 1:100,000 inj. Multi-dose 20 ML VIAL ONE (12:54)
[2025-01-02] MEDS: mag hydrox/Alum hydrox/simeth 30ml oral suspension PO ONE (14:15)
[2025-01-02] MEDS ORDERED: ondansetron/PF 4mg/2ml inj IV PRN (14:20)
[2025-01-02] MEDS ORDERED: ACETYLCYSTEINE 200 MG/1 ML 4 ML ORAL SOLUTION PO SCH (20:00)
--- NOTE | 2025-01-05 11:03 | CARDIOLOGY REPORT ---
DATE OF SERVICE: 01/02/2025 DICTATING PHYSICIAN: LATONYA YBARRA DO CARDIAC CATHETERIZATION REPORT REFERRING PHYSICIAN: Latonya Ybarra DO CLINICAL HISTORY: This 69-year-old man has had multiple coronary problems including 3 separate hospitalizations for stenting, the most recent being about 2 years ago. He is currently experiencing chest pain, typical of angina pectoris. He also has diabetes and a modest cardiomyopathy. PROCEDURES PERFORMED: * Right common femoral arterial access * Left heart catheterization. * Left ventriculography. * Selective coronary arteriography. * PTCA/stent placement (distal RCA). * PTCA/stent placement (principal circumflex marginal branch). * Left common femoral arterial access. * Ipsilateral/right iliac arteriography. * Percutaneous arteriotomy closure. * 2 hours and 15 minutes conscious sedation supervision. DESCRIPTION OF PROCEDURE: The patient was sedated with fentanyl and Versed. He was then prepared and draped in the usual manner. The right inguinal area was infiltrated with 1% lidocaine using a micropuncture set and a Seldinger technique. A 7-Senegalese sheath was placed in the common femoral artery. 3,000 units of heparin were given. Left heart catheterization and left ventriculography were performed using a 6-Senegalese pigtail catheter. Coronary arteriography was performed using 6-Senegalese #4 left and right Immanuel catheters. PTCA/STENT PLACEMENT: The patient was given an additional 8,000 units of heparin. The right coronary was engaged with a 6-Senegalese side-holed AL1 guiding catheter. A ChoICE PT2 guidewire was passed down through the main stem right coronary and across a 95% stenosis in the distal vessel, the stenosis being just proximal to the PDA. The lesion was dilated with a 3.5 x 15 mm balloon and the residual stenosis was covered with a 3.5 x 18 mm Oscar [place] drug-eluting stent deployed at 18 atmospheres. After test injections demonstrated stability of the treated area, final arteriography of this vessel was performed. The AL1 guiding catheter was removed and it was replaced with a 6-Senegalese #4 XBC guiding catheter positioned in the left main coronary. The same ChoICE PT2 guidewire was passed down through the circumflex and across a stenosis in the proximal and largest obtuse marginal branch. The lesion was dilated with a 2.5 x 12 mm balloon and the residual stenosis was covered with a 2.5 x 12 mm Oscar [place] drug-eluting stent deployed at 12 atmospheres. After test injections demonstrated stability of the treated area, final arteriography of the artery was performed. On removal of the left guiding catheter, the access sheath in the right common femoral artery was withdrawn outside of the femoral vessel. The sheath itself was barely into the artery at the outset because of this patient's marked girth. For that reason, the left/contralateral area overlying the common femoral artery was prepared and draped in the usual manner and using a micropuncture set, a 7-Senegalese sheath was placed in this common femoral artery. Using an PUSHPA and a Pioneer Advantage catheter, an PUSHPA was advanced across the iliac bifurcation and down the right/contralateral iliac artery close to where the right-sided sheath had been. Arteriography was performed, but there was no leakage into the soft tissues. The left arterial sheath access was successfully Perclosed. To ensure absence of belated bleeding, a Fem-stop was placed just above the right groin access site. RESULTS: HEMODYNAMIC DATA: The left ventricular end diastolic pressure was 22 mmHg. There was no significant gradient across the aortic valve. LEFT VENTRICULOGRAM: The left ventriculogram was technically satisfactory. The ejection fraction was estimated to be about 35-40%. Stents were visible in the LAD, the circumflex, and in the proximal mid right coronary. CORONARY ARTERIOGRAPHY: The coronary arteriograms are technically satisfactory. The patient had a right dominant system. LEFT MAIN CORONARY ARTERY: The left main was a large unobstructed vessel bifurcating into left anterior descending and circumflex coronary arteries. The left vein was a large unobstructed vessel bifurcating into the left anterior descending and circumflex coronary arteries. LEFT ANTERIOR DESCENDING CORONARY ARTERY: The LAD was a medium-sized vessel with not quite a transapical distribution. There was a small caliber first diagonal taken in its origin proximally. There was a medium-sized diagonal taking its origin from the mid vessel. The origin of the first diagonal was narrowed by about 90%, but the diameter was well below 2 mm in size. The second diagonal was unobstructed and there were no other obstructive lesions in the left anterior descending coronary artery. CIRCUMFLEX CORONARY ARTERY: The circumflex was a [id number] main stem vessel. There was a large, bifurcated first obtuse marginal and a very small caliber posterolateral branch. Therwas a 95% stenosis, which was just past a previously placed stent. RIGHT CORONARY ARTERY: The right coronary was a large main stem vessel. There was a small posterior descending branch and no significant runoff into a highly diseased terminal portion of the right coronary. A proximally placed stent was widely patent. Proximal to the posterior descending branch, there was a 95% stenosis. PTCA/STENT PLACEMENT: Following balloon angioplasty and stenting of the distal right coronary stenosis, there was no significant residual stenosis and brisk runoff into the small caliber vessels beyond this lesion. Following balloon angioplasty and stenting of the principal circumflex marginal branch, there was no significant residual stenosis and brisk runoff into the bifurcated distal two-thirds of the principal obtuse marginal branch. CONCLUSIONS: * Obstructive coronary artery disease manifested as: * A. A 90% lesion at the ostium of very small first LAD diagonal. * B. A 95% stenosis in the principal circumflex marginal branch. * C. A 95% distal right coronary stenosis. * Previously placed stents at the origin of the LAD, proximally within the first OMB and in the proxima lRCA were all widely patent. * Successful stenting of high-grade stenoses involving the principal obtuse marginal branch and in the distal right coronaries. Following the stent interventions in both these locations, there was no apparent residual stenosis. RADHA flow was graded as 3, before and after intervention. * Left ventricular function is moderately reduced. The estimated LVEF was 35-40%. LATONYA YBARRA DO TID: [id number] RECEIPT: [id number] [facility]
== END 2025-01-02 18:00 | disposition home or self-care (01) ==
LOC: SSTAY O 08:21
PROVIDERS: ATTEND Internal Medicine Cardiovascular Disease
DX: I25.119 Atherosclerotic heart disease of native coronary artery with unspecified angina pectoris (principal); E11.9 Type 2 diabetes mellitus without complications; E66.01 Morbid (severe) obesity due to excess calories; E78.5 Hyperlipidemia, unspecified; G47.33 Obstructive sleep apnea (adult) (pediatric); I48.91 Unspecified atrial fibrillation; Z79.01 Long term (current) use of anticoagulants; Z90.49 Acquired absence of other specified parts of digestive tract; Z95.5 Presence of coronary angioplasty implant and graft; Z68.41 Body mass index [BMI] 40.0-44.9, adult; Z82.49 Family history of ischemic heart disease and other diseases of the circulatory system
CPT/HCPCS: 36140; 36415; 80048; 82948; 83735; 85025; 85610; 93005; 93458; 99152; 99153; C1760; C1874; C9600; J1644; J2003; J2250; J2720; J3010; J7030; Q0163; Q9967; 36246; A6258; A6449; C1725; C1751; C1769; C1894